=== PATIENT | male | born 1990 | race Caucasian/White ===

== ENCOUNTER 2021-06-13 16:37 | Outpatient (CLI) | payer SELFPAY | END 2021-06-13 16:38 | disposition home or self-care (01) | LOC: COV 16:37 | PROVIDERS: ATTEND Family Medicine | DX: J34.89 Other specified disorders of nose and nasal sinuses (principal); Z20.822 Contact with and (suspected) exposure to COVID-19 ==

== ENCOUNTER 2022-04-22 14:47 | Outpatient (CLI) | payer OTHER | END 2022-04-22 14:48 | disposition EMS.NT | LOC: EMS 14:47 | DX: Z04.1 Encounter for examination and observation following transport accident (principal) ==